=== PATIENT | male | born 1945 | race Two or more races ===

== ENCOUNTER 2023-11-06 07:33 | Inpatient (IN) | payer MEDICARE ==
[~2023-11-06] VITALS: Ht 179.1 cm; Wt 77.6 kg
[2023-11-06] MEDS ORDERED: LORAZEPAM 0.5 MG TABLET PO PRN (12:30)
[2023-11-06] MEDS ORDERED: MAG HYDROX/AL HYDROX/SIMETH 30 ML UDC PO PRN (12:30)
[2023-11-06] MEDS ORDERED: MAGNESIUM HYDROXIDE 30 ML UDC PO PRN (12:30)
[2023-11-06] MEDS ORDERED: DOCU100C36 PO (13:15)
[2023-11-06] MEDS ORDERED: OXYC-128 PO (13:15)
[2023-11-06] MEDS ORDERED: ASPI-992 PO (13:15)
[2023-11-06] MEDS ORDERED: FINA5TAB11 PO (13:30)
[2023-11-06] MEDS ORDERED: TAMS-12 PO (13:31)
[2023-11-06 16:00] VITALS: BP 123/62; TEMP 98; O2SAT 98
[2023-11-06] MEDS: DOCUSATE SODIUM 100 MG CAPSULE PO SCH (17:20)
[2023-11-06] MEDS: PANTOPRAZOLE 40 MG TABLET.DR PO SCH (17:20)
[2023-11-06] MEDS: ASPIRIN 325 MG TABLET PO SCH (17:20)
[2023-11-06 20:55] VITALS: BP 135/101; TEMP 97.5; O2SAT 99
[2023-11-06] MEDS: DIVALPROEX SODIUM 125 MG TABLET.DR PO SCH (23:05)
[2023-11-06] MEDS: TEMAZEPAM 7.5 MG CAPSULE PO PRN (23:24)
[2023-11-07 08:00] VITALS: BP 150/98; TEMP 98.1; O2SAT 98
[2023-11-07 08:05] LABS: ALANINE AMINOTRANSFERASE 20 U/L (12-78); ALBUMIN 3.2 g/dL (3.4-5.0); ALKALINE PHOSPHATASE 90 U/L (46-116); ASPARTATE AMINOTRANSFERASE 13 U/L (15-37); BILIRUBIN,TOTAL 0.5 mg/dL (0.2-1.0); CALCIUM, SERUM 8.9 mg/dL (8.5-10.1); CARBON DIOXIDE 30 mmol/L (21-32); CHLORIDE 106 mmol/L (98-107); GLUCOSE 79 mg/dL (74-106); POTASSIUM 4.1 mmol/L (3.5-5.1); SODIUM SERUM 139 mmol/L (136-145); TOTAL PROTEIN, SERUM 6.8 g/dL (6.4-8.2); UREA NITROGEN, BLOOD 18 mg/dL (7-18)
[2023-11-07 08:13] LABS: THYROID STIMULATING HORMONE 2.27 uIU/mL (0.358-3.74)
[2023-11-07 16:00] VITALS: BP 115/69; TEMP 97.9; O2SAT 98
[2023-11-07] MEDS: DIVALPROEX SODIUM 125 MG TABLET.DR PO SCH (16:39)
[2023-11-07 21:18] VITALS: BP 145/80; TEMP 97.9; O2SAT 96
[2023-11-08 08:00] VITALS: BP 140/86; TEMP 98.7; O2SAT 99
[2023-11-08 16:00] VITALS: BP 116/75; TEMP 97.9; O2SAT 97
[2023-11-08 20:07] VITALS: BP 156/93; TEMP 98; O2SAT 99
[2023-11-09 08:00] VITALS: BP 157/89; TEMP 98.7; O2SAT 96
[2023-11-09 16:00] VITALS: BP 122/73; TEMP 97.9; O2SAT 96
[2023-11-09 20:00] VITALS: BP 175/96; TEMP 98.1; O2SAT 95
[2023-11-09] MEDS: CLONIDINE HCL 0.1 MG TABLET PO PRN (23:00)
[2023-11-10 08:00] VITALS: BP 159/94; TEMP 97.8; O2SAT 99
[2023-11-10] MEDS: risperiDONE 0.25 MG TABLET PO SCH (09:21)
[2023-11-10 16:00] VITALS: BP 150/79; TEMP 98.2; O2SAT 99
[2023-11-10 20:00] VITALS: BP 137/74; TEMP 98; O2SAT 98
[2023-11-11 08:00] VITALS: BP 104/82; TEMP 97.7; O2SAT 95
[2023-11-11] MEDS: LORAZEPAM 0.5 MG TABLET PO PRN (10:47)
[2023-11-11 16:00] VITALS: BP 122/78; TEMP 97.1; O2SAT 95
[2023-11-11 20:00] VITALS: BP 126/89; TEMP 97.9; O2SAT 96
[2023-11-11] MEDS: ACETAMINOPHEN 325 MG TABLET PO PRN (20:40)
[2023-11-12 08:00] VITALS: BP 128/81; TEMP 98; TEMP 98.1; O2SAT 96
[2023-11-12 16:00] VITALS: BP 126/80; TEMP 98; O2SAT 98
[2023-11-12 21:22] VITALS: BP 126/78; TEMP 98.1; O2SAT 98
[2023-11-13 08:00] VITALS: BP 146/86; TEMP 97.8; O2SAT 97
[2023-11-13 16:08] VITALS: BP 106/85; TEMP 98.1; O2SAT 97
[2023-11-13] MEDS: BENZTROPINE MESYLATE (1 MG) 1 MG TABLET PO SCH (17:00)
[2023-11-13 20:50] VITALS: BP 113/77; TEMP 97.8; O2SAT 99
[2023-11-14 08:00] VITALS: BP 109/69; TEMP 98.6; O2SAT 97
[2023-11-14 16:00] VITALS: BP 109/74; TEMP 97.9; O2SAT 98
[2023-11-14 20:19] VITALS: BP 128/77; TEMP 98.1; O2SAT 97
[2023-11-15 08:00] VITALS: BP 146/88; TEMP 97.8; O2SAT 94
[2023-11-15] MEDS: oxyCODONE/APAP (5/325 MG) 1 UDTAB TABLET PO PRN (12:47)
[2023-11-15 16:00] VITALS: BP 128/81; TEMP 98.2; O2SAT 98
[2023-11-15 20:16] VITALS: BP 111/81; TEMP 98.2; O2SAT 98
[2023-11-16 08:00] VITALS: BP 111/72; TEMP 98.7; O2SAT 98
[2023-11-16 16:00] VITALS: BP 101/73; TEMP 98.6; O2SAT 96
[2023-11-16] MEDS: risperiDONE 0.25 MG TABLET PO SCH (22:48)
[2023-11-17 08:00] VITALS: BP 103/69; TEMP 98.6; O2SAT 96
[2023-11-17] MEDS: risperiDONE 1 MG TABLET PO SCH (09:02)
[2023-11-17] MEDS: DIVALPROEX SODIUM 125 MG CAP.SPRINK PO SCH (12:33)
[2023-11-17 16:00] VITALS: BP 104/80; TEMP 98.4; O2SAT 96
[2023-11-17 20:43] VITALS: BP 122/79; TEMP 98; O2SAT 98
[2023-11-18 08:00] VITALS: BP 141/84; TEMP 98; O2SAT 97
[2023-11-18 16:00] VITALS: BP 137/81; TEMP 98; O2SAT 97
[2023-11-18 20:00] VITALS: BP 131/83; TEMP 97.7; O2SAT 95
[2023-11-19 08:00] VITALS: BP 138/81; TEMP 97.7; O2SAT 99
[2023-11-19 16:00] VITALS: BP 111/72; TEMP 97.7; O2SAT 93
[2023-11-19 20:36] VITALS: BP 126/76; TEMP 97.9; O2SAT 98
[2023-11-19] MEDS: Z GUARD REMEDY 4 OZ OINT TP PRN (22:58)
[2023-11-20 08:00] VITALS: BP 144/83; TEMP 97.7; O2SAT 100
[2023-11-20 16:00] VITALS: BP 115/82; TEMP 98.6; O2SAT 100
[2023-11-20 21:37] VITALS: BP 126/90; TEMP 98.3; O2SAT 96
[2023-11-21 08:00] VITALS: BP 103/65; TEMP 98.1; O2SAT 97
[2023-11-21 16:00] VITALS: BP 120/81; TEMP 98.7; O2SAT 97
[2023-11-21 20:00] VITALS: BP 130/82; TEMP 98.1; O2SAT 100
[2023-11-22 08:00] VITALS: BP 151/87; TEMP 98.7; O2SAT 98
[2023-11-22] MEDS ORDERED: Z GUARD REMEDY 4 OZ OINT TP PRN (09:00)
[2023-11-22] MEDS: Z GUARD REMEDY 4 OZ OINT TP SCH (09:22)
[2023-11-22] MEDS: CLOTRIMAZOLE 1% 15 GM TUBE TP SCH (09:22)
[2023-11-22 16:00] VITALS: BP 137/88; TEMP 97.7; O2SAT 98
[2023-11-22 20:00] VITALS: BP 136/78; TEMP 97.7; O2SAT 99
[2023-11-23 08:00] VITALS: BP 125/90; TEMP 98.7; O2SAT 95
== END 2023-11-23 10:45 | DRG 885 ==
LOC: GPS 11:58
PROVIDERS: ADMIT Psychiatry & Neurology Psychosomatic Medicine; ATTEND Student in an Organized Health Care Education/Training Program
DX: F39 Unspecified mood [affective] disorder (principal); E44.1 Mild protein-calorie malnutrition; F02.83 Dementia in other diseases classified elsewhere, unspecified severity, with mood disturbance; F29 Unspecified psychosis not due to a substance or known physiological condition; I10 Essential (primary) hypertension; E78.5 Hyperlipidemia, unspecified; M19.90 Unspecified osteoarthritis, unspecified site; N40.0 Benign prostatic hyperplasia without lower urinary tract symptoms; I25.10 Atherosclerotic heart disease of native coronary artery without angina pectoris; Z91.85 Personal history of military service; Z68.24 Body mass index [BMI] 24.0-24.9, adult; G31.83 Neurocognitive disorder with Lewy bodies; Z73.6 Limitation of activities due to disability; Z20.822 Contact with and (suspected) exposure to COVID-19; H26.9 Unspecified cataract; Z79.899 Other long term (current) drug therapy
CPT/HCPCS: 36415; 70450-TC; 73030-TC; 80048-TC; 80053-TC; 80061-TC; 80164-TC; 82962-TC; 84443-TC; 97112-TC; 97116-TC; 97530-TC; 97535-TC; A6403